=== PATIENT | male | born 1965 ===

== ENCOUNTER 2022-05-01 05:37 | Day surgery (SDC) | payer OTHER ==
[~2022-05-01 05:37] MED LIST: AMLODIPINE-OLM1 EACH PO
== END 2022-05-01 13:05 | disposition home or self-care (01) ==
LOC: CIR.AMB 05:37
PROVIDERS: ATTEND Surgery Surgery of the Hand
DX: M65.841 Other synovitis and tenosynovitis, right hand (principal); I10 Essential (primary) hypertension; F17.210 Nicotine dependence, cigarettes, uncomplicated; Z20.822 Contact with and (suspected) exposure to COVID-19